=== PATIENT | female | born 1990 ===

== ENCOUNTER 2016-07-31 10:33 | Emergency (ER) | payer OTHER ==
[2016-07-31] MEDS ORDERED: ACETAMINOPHEN TAB 500 MG TAB PO STA (11:39)
--- NOTE | 2016-07-31 11:43 | ED ---
General Adult HPI - General Chief complaint: Upper Respiratory Infection Stated complaint: COUGH, FEVER, SORE THROAT, CA PATIENT Time Seen by Provider: 07/31/16 11:35 Source: patient, family, RN notes reviewed Mode of arrival: ambulatory Limitations: no limitations - History of Present Illness Initial comments: Patient is a pleasant 26-year-old female presenting to the emergency department with concerns for fever. Patient has had a cough for the past 5 days. Patient did have some green sputum this morning. Patient also noticed fever this morning. Patient has not taken any Tylenol today. No difficulty in breathing. Patient does have breast cancer and is currently on chemotherapy for this. Patient denies any discomfort or itching with the rash. Patient has been using hydrocortisone cream as recommended by her doctor. - Related Data Previous Rx's Medication Instructions Recorded Levofloxacin [Levaquin] 500 mg PO DAILY #9 tab 07/31/16 Allergies Allergy/AdvReac Type Severity Reaction Status Date / Time No Known Allergies Allergy Verified 07/31/16 11:30 Review of Systems ROS Statement: Those systems with pertinent positive or pertinent negative responses have been documented in the HPI. ROS Other: All systems not noted in ROS Statement are negative. Constitutional: Reports: fever, chills Eyes: Denies: eye pain ENT: Reports: throat pain. Denies: ear pain Respiratory: Reports: cough. Denies: dyspnea Cardiovascular: Denies: chest pain Endocrine: Reports: fatigue Gastrointestinal: Denies: abdominal pain Genitourinary: Denies: dysuria Musculoskeletal: Denies: back pain Skin: Reports: rash (Patient sent a pitcher to her doctor and was told it was from her chemotherapy) Neurological: Denies: headache Past Medical History Additional Past Medical History / Comment(s): breast cancer History of Any Multi-Drug Resistant Organisms: None Reported Additional Past Surgical History / Comment(s): wisdom teeth Past Psychological History: No Psychological Hx Reported Smoking Status: Never smoker Past Alcohol Use History: None Reported Past Drug Use History: None Reported General Exam Limitations: no limitations General appearance: alert, in no apparent distress Head exam: Present: atraumatic Eye exam: Present: normal appearance, PERRL ENT exam: Present: normal oropharynx Neck exam: Present: normal inspection. Absent: meningismus Respiratory exam: Present: rhonchi Cardiovascular Exam: Present: tachycardia GI/Abdominal exam: Present: soft. Absent: distended, tenderness Extremities exam: Present: normal inspection Neurological exam: Present: alert Psychiatric exam: Present: normal affect, normal mood Skin exam: Present: rash (Patient does have erythematous rash, mostly on the stomach, left side. Patient does have some vesicular-type appearance centrally. Nontender.) Course Vital Signs 07/31/16 07/31/16 11:30 14:01 Temperature 100.4 F H 98.8 F Pulse Rate 116 H 105 H Respiratory 16 18 Rate Blood Pressure 126/84 112/74 O2 Sat by Pulse 99 98 Oximetry EKG Findings - EKG Comments: EKG Findings:: Sinus tachycardia 106. NC 126. QRS 78. QT 350. QTC 464. Normal axis. Normal QRS. Normal ST-T. Medical Decision Making - Medical Decision Making Patient states she did just recently have neulasta. Case was discussed in detail with Dr. Gupta who is familiar with this patient. He recommends Levaquin and patient can be discharged. Patient reevaluated and updated on results and plan. Patient is comfortable with discharge. - Lab Data Result diagrams: 07/31/16 12:20 07/31/16 12:20 Lab Results 07/31/16 07/31/16 07/31/16 Range/Units 12:20 12:20 12:20 WBC 31.8 H* (3.8-10.6) k/uL RBC 3.40 L (3.80-5.40) m/uL Hgb 10.6 L (11.4-16.0) gm/dL Hct 31.1 L (34.0-46.0) % MCV 91.6 (80.0-100.0) fL MCH 31.1 (25.0-35.0) pg MCHC 33.9 (31.0-37.0) g/dL RDW 16.9 H (11.5-15.5) % Plt Count 283 (150-450) k/uL Neutrophils % (Manual) 85.0 % Band Neutrophils % 6.5 % Lymphocytes % (Manual) 4.0 % Monocytes % (Manual) 4.0 % Metamyelocytes % 0.5 % Neutrophils # (Manual) 29.1 H (1.3-7.7) k/uL Lymphocytes # (Manual) 1.3 (1.0-4.8) k/uL Monocytes # (Manual) 1.3 H (0-1.0) k/uL Nucleated RBCs 0 (0-0) /100 WBC Manual Slide Review Performed Toxic Granulation Present RBC Morphology Normal Anisocytosis Slight Sodium 143 (137-145) mmol/L Potassium 3.5 (3.5-5.1) mmol/L Chloride 102 (98-107) mmol/L Carbon Dioxide 27 (22-30) mmol/L Anion Gap 14 mmol/L BUN <2 L (7-17) mg/dL Creatinine 0.61 (0.52-1.04) mg/dL Est GFR (MDRD) Af Amer >60 (>60 ml/min/1.73 sqM) Est GFR (MDRD) Non-Af >60 (>60 ml/min/1.73 sqM) Glucose 94 (74-99) mg/dL Plasma Lactic Acid Omar 1.3 (0.7-2.0) mmol/L Calcium 9.6 (8.4-10.2) mg/dL Total Bilirubin 0.6 (0.2-1.3) mg/dL AST 52 H (14-36) U/L ALT 69 H (9-52) U/L Alkaline Phosphatase 176 H (38-126) U/L Total Protein 7.6 (6.3-8.2) g/dL Albumin 4.6 (3.5-5.0) g/dL Urine Color Urine Appearance (Clear) Urine pH (5.0-8.0) Ur Specific [place] (1.001-1.035) Urine Protein (Negative) Urine Glucose (UA) (Negative) Urine Ketones (Negative) Urine Blood (Negative) Urine Nitrate (Negative) Urine Bilirubin (Negative) Urine Urobilinogen (<2.0) mg/dL Ur Leukocyte Esterase (Negative) Influenza Type A RNA (Not Detectd) Influenza Type B (PCR) (Not Detectd) 07/31/16 07/31/16 Range/Units 12:20 12:50 WBC (3.8-10.6) k/uL RBC (3.80-5.40) m/uL Hgb (11.4-16.0) gm/dL Hct (34.0-46.0) % MCV (80.0-100.0) fL MCH (25.0-35.0) pg MCHC (31.0-37.0) g/dL RDW (11.5-15.5) % Plt Count (150-450) k/uL Neutrophils % (Manual) % Band Neutrophils % % Lymphocytes % (Manual) % Monocytes % (Manual) % Metamyelocytes % % Neutrophils # (Manual) (1.3-7.7) k/uL Lymphocytes # (Manual) (1.0-4.8) k/uL Monocytes # (Manual) (0-1.0) k/uL Nucleated RBCs (0-0) /100 WBC Manual Slide Review Toxic Granulation RBC Morphology Anisocytosis Sodium (137-145) mmol/L Potassium (3.5-5.1) mmol/L Chloride (98-107) mmol/L Carbon Dioxide (22-30) mmol/L Anion Gap mmol/L BUN (7-17) mg/dL Creatinine (0.52-1.04) mg/dL Est GFR (MDRD) Af Amer (>60 ml/min/1.73 sqM) Est GFR (MDRD) Non-Af (>60 ml/min/1.73 sqM) Glucose (74-99) mg/dL Plasma Lactic Acid Omar (0.7-2.0) mmol/L Calcium (8.4-10.2) mg/dL Total Bilirubin (0.2-1.3) mg/dL AST (14-36) U/L ALT (9-52) U/L Alkaline Phosphatase (38-126) U/L Total Protein (6.3-8.2) g/dL Albumin (3.5-5.0) g/dL Urine Color Light Yellow Urine Appearance Clear (Clear) Urine pH 5.5 (5.0-8.0) Ur Specific [place] 1.003 (1.001-1.035) Urine Protein Negative (Negative) Urine Glucose (UA) Negative (Negative) Urine Ketones Negative (Negative) Urine Blood Negative (Negative) Urine Nitrate Negative (Negative) Urine Bilirubin Negative (Negative) Urine Urobilinogen <2.0 (<2.0) mg/dL Ur Leukocyte Esterase Negative (Negative) Influenza Type A RNA Not Detected (Not Detectd) Influenza Type B (PCR) Not Detected (Not Detectd) - Radiology Data Radiology results: image reviewed (Chest x-ray shows no acute process.) Disposition Clinical Impression: Upper respiratory infection Disposition: HOME SELF-CARE Condition: Stable Instructions: Upper Respiratory Infection (ED) Additional Instructions: Please follow-up with your oncologist on Tuesday. Return for difficulty in breathing, uncontrolled fevers, weakness, worsening symptoms or other concerns. Prescriptions: Levofloxacin [Levaquin] 500 mg PO DAILY #9 tab Referrals: Clarissa Landers DO [Primary Care Provider] - 1-2 days
[2016-07-31] MEDS: SODIUM CHLORIDE 0.9% 500 ML IV SCH ×2 (12:23→14:12)
[2016-07-31 12:38] LABS: Anisocytosis Slight; CH 31.7; CHCM 34.9; HCT 31.1 % (34.0-46.0); HDW 3.09; HGB 10.6 gm/dL (11.4-16.0); MCH 31.1 pg (25.0-35.0); MCHC 33.9 g/dL (31.0-37.0); MCV 91.6 fL (80.0-100.0); Mean Platelet Volume 7.4; RDW 16.9 % (11.5-15.5); WBC (Perox) 32.47
[2016-07-31 12:40] LABS: Appearance,Urine Clear (Clear); Bilirubin,Urine Negative (Negative); Glucose,Urine (UA) Negative (Negative); Ketones,Urine Negative (Negative); Leukocyte Esterase,Urine Negative (Negative); Nitrite,Urine Negative (Negative); PH, Urine 5.5 (5.0-8.0); Protein,Urine Negative (Negative); Specific Gravity,Urine 1.003 (1.001-1.035); UA Billing (MACRO vs. MICRO) CHEM; Urobilinogen,Urine <2.0 mg/dL (<2.0)
--- NOTE | 2016-07-31 12:44 | XR ---
EXAMINATION TYPE: XR chest 2V DATE OF EXAM: 07/31/2016 12:41 PM COMPARISON: NONE INDICATION: Fever cough congestion TECHNIQUE: Frontal and lateral views of the chest are obtained. FINDINGS: The heart size is normal. The pulmonary vasculature is normal. The lungs are clear. IMPRESSION: 1. No acute pulmonary process.
[2016-07-31 12:45] LABS: WBC 31.8 k/uL (3.8-10.6)
[2016-07-31 12:48] LABS: ALT 69 U/L (9-52); AST 52 U/L (14-36); Alkaline Phosphatase 176 U/L (38-126); Anion Gap 14 mmol/L; Blood Urea Nitrogen <2 mg/dL (7-17); Calcium 9.6 mg/dL (8.4-10.2); Carbon Dioxide 27 mmol/L (22-30); Chloride 102 mmol/L (98-107); Glucose 94 mg/dL (74-99); Non-African American GFR(MDRD) >60 (>60 ml/min/1.73 sqM); Potassium 3.5 mmol/L (3.5-5.1); Sodium 143 mmol/L (137-145); Total Bilirubin 0.6 mg/dL (0.2-1.3); Total Protein 7.6 g/dL (6.3-8.2)
[2016-07-31 12:52] LABS: Add Differential Manual Differential
[2016-07-31 12:54] LABS: Band Neutrophils % 6.5 %; Manual Review Performed; Metamyelocytes % 0.5 %; Nucleated Red Blood Cells 0 /100 WBC (0-0); Total Cells Counted 200; Toxic Granulation Present
[2016-07-31 12:55] LABS: RBC Morphology Normal
[2016-07-31 14:02] VITALS: RESP 18; TEMP 98.8
[2016-07-31] MEDS ORDERED: LEVOFLOXACIN 500 MG TAB PO STA (14:55)
[2016-07-31 15:08] VITALS: BP 113/66; PULSE 104
== END 2016-07-31 15:08 | disposition home or self-care (01) ==
LOC: EC 10:33
DX: J06.9 Acute upper respiratory infection, unspecified (principal); R21 Rash and other nonspecific skin eruption; R00.0 Tachycardia, unspecified
CPT/HCPCS: 12002; 36415; 71020; 80053; 81003; 83605; 85025; 87040; 87086; 87502; 93005; 96360; 99283; 99284

== ENCOUNTER 2019-11-21 17:57 | Emergency (ER) | payer OTHER ==
[2019-11-21 18:05] VITALS: RESP 18; TEMP 98.4
[2019-11-21] MEDS ORDERED: SODIUM CHLORIDE 0.9% 500 ML 500 ML IV STA (18:17)
[2019-11-21] MEDS ORDERED: KETOROLAC 30 MG/ML 1 ML VIAL IVP STA (18:17)
--- NOTE | 2019-11-21 18:32 | ED ---
Abdominal Pain HPI - General Chief Complaint: Abdominal Pain Stated Complaint: Flank pain Time Seen by Provider: 11/21/19 18:05 Source: patient, RN notes reviewed Mode of arrival: ambulatory Limitations: no limitations - History of Present Illness Initial Comments: 29-year-old female presents emergency Department chief complaint of severe left lower quadrant pain. Patient states it has been ongoing but worsening. She got she had ovarian cyst and states that she went to her WOUND CARE PHYSICIAN in which they did a transvaginal ultrasound was negative for cysts she was treated for bacterial vaginosis and had a Pap. Patient states she follow-up with her primary care physician after that noted diagnosed with UTI states that she took an infection of this. Patient also had no abdominal ultrasound which was negative for any acute findings though she states her pain was not in any other areas that the ultrasound. Patient denies any back pain. Patient does have a history significant for breast cancer treated with chemotherapy. Patient states that she's been negative after. She's had yearly checkups. Patient denies fever, chills no dysuria no hematuria denies any chance . She states not worse with movement no changes with congestion at this time she states initially it was. She has been referred to GI but she states this one month away. She states pain was unbearable today. - Related Data Home Medications Medication Instructions Recorded Confirmed Ibuprofen [Motrin Ib] 600 mg PO ONCE PRN 11/21/19 11/21/19 Allergies Allergy/AdvReac Type Severity Reaction Status Date / Time No Known Allergies Allergy Verified 11/21/19 18:50 Review of Systems ROS Statement: Those systems with pertinent positive or pertinent negative responses have been documented in the HPI. ROS Other: All systems not noted in ROS Statement are negative. Past Medical History Additional Past Medical History / Comment(s): breast cancer History of Any Multi-Drug Resistant Organisms: None Reported Additional Past Surgical History / Comment(s): wisdom teeth Past Psychological History: No Psychological Hx Reported Smoking Status: Never smoker Past Alcohol Use History: None Reported Past Drug Use History: None Reported General Exam Limitations: no limitations General appearance: alert, in no apparent distress Head exam: Present: atraumatic, normocephalic, normal inspection Eye exam: Present: normal appearance, PERRL, EOMI. Absent: scleral icterus, conjunctival injection, periorbital swelling ENT exam: Present: normal exam, mucous membranes moist Neck exam: Present: normal inspection. Absent: tenderness, meningismus, lymphadenopathy Respiratory exam: Present: normal lung sounds bilaterally. Absent: respiratory distress, wheezes, rales, rhonchi, stridor Cardiovascular Exam: Present: regular rate, normal rhythm, normal heart sounds. Absent: systolic murmur, diastolic murmur, rubs, gallop, clicks GI/Abdominal exam: Present: soft, tenderness (Moderate left lower quadrant, left groin tenderness), normal bowel sounds. Absent: distended, guarding, rebound, rigid Back exam: Absent: CVA tenderness (R), CVA tenderness (L) Neurological exam: Present: alert, oriented X3, CN II-XII intact Skin exam: Present: warm, dry, intact, normal color. Absent: rash Course Vital Signs 11/21/19 11/21/19 18:02 18:58 Temperature 98.4 F Pulse Rate 107 H 68 Respiratory 18 18 Rate Blood Pressure 149/92 128/84 O2 Sat by Pulse 97 99 Oximetry Medical Decision Making - Medical Decision Making Laboratory unremarkable, CT shows evidence of dilated colon constipation fecal stasis. Patient is advised use arm are suppository. Patient has a GI follow-up return parameters were discussed. - Lab Data Result diagrams: 11/21/19 18:30 11/21/19 18:30 Lab Results 11/21/19 11/21/19 11/21/19 Range/Units 18:30 18:30 18:30 WBC 5.6 (3.8-10.6) k/uL RBC 5.19 (3.80-5.40) m/uL Hgb 15.7 (11.4-16.0) gm/dL Hct 48.3 H (34.0-46.0) % MCV 93.1 (80.0-100.0) fL MCH 30.2 (25.0-35.0) pg MCHC 32.4 (31.0-37.0) g/dL RDW 11.7 (11.5-15.5) % Plt Count 244 (150-450) k/uL Neutrophils % 65 % Lymphocytes % 22 % Monocytes % 7 % Eosinophils % 1 % Basophils % 1 % Neutrophils # 3.6 (1.3-7.7) k/uL Lymphocytes # 1.2 (1.0-4.8) k/uL Monocytes # 0.4 (0-1.0) k/uL Eosinophils # 0.1 (0-0.7) k/uL Basophils # 0.0 (0-0.2) k/uL Sodium (137-145) mmol/L Potassium (3.5-5.1) mmol/L Chloride (98-107) mmol/L Carbon Dioxide (22-30) mmol/L Anion Gap mmol/L BUN (7-17) mg/dL Creatinine (0.52-1.04) mg/dL Est GFR (CKD-EPI)AfAm (>60 ml/min/1.73 sqM) Est GFR (CKD-EPI)NonAf (>60 ml/min/1.73 sqM) Glucose (74-99) mg/dL Calcium (8.4-10.2) mg/dL Total Bilirubin (0.2-1.3) mg/dL AST (14-36) U/L ALT (4-34) U/L Alkaline Phosphatase (38-126) U/L Total Protein (6.3-8.2) g/dL Albumin (3.5-5.0) g/dL Lipase (23-300) U/L Urine Color Colorless Urine Appearance Clear (Clear) Urine pH 5.5 (5.0-8.0) Ur Specific [place] 1.001 (1.001-1.035) Urine Protein Negative (Negative) Urine Glucose (UA) Negative (Negative) Urine Ketones Negative (Negative) Urine Blood Negative (Negative) Urine Nitrite Negative (Negative) Urine Bilirubin Negative (Negative) Urine Urobilinogen <2.0 (<2.0) mg/dL Ur Leukocyte Esterase Negative (Negative) Urine HCG, Qual Not Detected (Not Detectd) 11/21/19 Range/Units 18:30 WBC (3.8-10.6) k/uL RBC (3.80-5.40) m/uL Hgb (11.4-16.0) gm/dL Hct (34.0-46.0) % MCV (80.0-100.0) fL MCH (25.0-35.0) pg MCHC (31.0-37.0) g/dL RDW (11.5-15.5) % Plt Count (150-450) k/uL Neutrophils % % Lymphocytes % % Monocytes % % Eosinophils % % Basophils % % Neutrophils # (1.3-7.7) k/uL Lymphocytes # (1.0-4.8) k/uL Monocytes # (0-1.0) k/uL Eosinophils # (0-0.7) k/uL Basophils # (0-0.2) k/uL Sodium 139 (137-145) mmol/L Potassium 4.0 (3.5-5.1) mmol/L Chloride 105 (98-107) mmol/L Carbon Dioxide 26 (22-30) mmol/L Anion Gap 8 mmol/L BUN 8 (7-17) mg/dL Creatinine 0.71 (0.52-1.04) mg/dL Est GFR (CKD-EPI)AfAm >90 (>60 ml/min/1.73 sqM) Est GFR (CKD-EPI)NonAf >90 (>60 ml/min/1.73 sqM) Glucose 123 H (74-99) mg/dL Calcium 10.2 (8.4-10.2) mg/dL Total Bilirubin 0.4 (0.2-1.3) mg/dL AST 23 (14-36) U/L ALT 13 (4-34) U/L Alkaline Phosphatase 45 (38-126) U/L Total Protein 7.9 (6.3-8.2) g/dL Albumin 4.9 (3.5-5.0) g/dL Lipase 143 (23-300) U/L Urine Color Urine Appearance (Clear) Urine pH (5.0-8.0) Ur Specific [place] (1.001-1.035) Urine Protein (Negative) Urine Glucose (UA) (Negative) Urine Ketones (Negative) Urine Blood (Negative) Urine Nitrite (Negative) Urine Bilirubin (Negative) Urine Urobilinogen (<2.0) mg/dL Ur Leukocyte Esterase (Negative) Urine HCG, Qual (Not Detectd) Disposition Clinical Impression: Abdominal pain, Constipation Disposition: HOME SELF-CARE Condition: Stable Instructions (If sedation given, give patient instructions): Abdominal Pain (ED) Additional Instructions: Please return to the Emergency Department if symptoms worsen or any other concerns. Is patient prescribed a controlled substance at d/c from ED?: No Referrals: Clarissa Landers DO [Primary Care Provider] - 1-2 days
[2019-11-21 18:45] LABS: Basophils % (A) 1 %; Eosinophils # (A) 0.1 k/uL (0-0.7); Eosinophils % (A) 1 %; HCT 48.3 % (34.0-46.0); HGB 15.7 gm/dL (11.4-16.0); Lymphocytes # (A) 1.2 k/uL (1.0-4.8); Lymphocytes % (A) 22 %; MCH 30.2 pg (25.0-35.0); MCHC 32.4 g/dL (31.0-37.0); MCV 93.1 fL (80.0-100.0); Mean Platelet Volume 7.7; Monocytes # (A) 0.4 k/uL (0-1.0); Monocytes % (A) 7 %; Neutrophils # (A) 3.6 k/uL (1.3-7.7); Neutrophils % (A) 65 %; Platelet Count 244 k/uL (150-450); RBC 5.19 m/uL (3.80-5.40); RDW 11.7 % (11.5-15.5); WBC 5.6 k/uL (3.8-10.6)
[2019-11-21 18:46] LABS: Appearance,Urine Clear (Clear); Bilirubin,Urine Negative (Negative); Blood,Urine Negative (Negative); Color,Urine Colorless; Glucose,Urine (UA) Negative (Negative); Ketones,Urine Negative (Negative); Leukocyte Esterase,Urine Negative (Negative); Nitrite,Urine Negative (Negative); PH, Urine 5.5 (5.0-8.0); Protein,Urine Negative (Negative); Specific Gravity,Urine 1.001 (1.001-1.035); Urobilinogen,Urine <2.0 mg/dL (<2.0)
[2019-11-21 18:54] LABS: ALT 13 U/L (4-34); AST 23 U/L (14-36); African American GFR (CKD) >90 (>60 ml/min/1.73 sqM); Albumin 4.9 g/dL (3.5-5.0); Alkaline Phosphatase 45 U/L (38-126); Anion Gap 8 mmol/L; Blood Urea Nitrogen 8 mg/dL (7-17); Calcium 10.2 mg/dL (8.4-10.2); Carbon Dioxide 26 mmol/L (22-30); Chloride 105 mmol/L (98-107); Glucose 123 mg/dL (74-99); Non-African American GFR(CKD) >90 (>60 ml/min/1.73 sqM); Sodium 139 mmol/L (137-145); Total Bilirubin 0.4 mg/dL (0.2-1.3); Total Protein 7.9 g/dL (6.3-8.2)
--- NOTE | 2019-11-21 19:28 | CT ---
EXAMINATION TYPE: CT abdomen pelvis w con DATE OF EXAM: 11/21/2019 HISTORY: Lower abdominal pain x1 month, hx of breast CA CT DLP: 582.1mGycm Automated Exposure Control for Dose Reduction was Utilized. CONTRAST: CT scan of the abdomen and pelvis is performed without oral but with IV Contrast, patient injected wi th 100 mL of Isovue 300. COMPARISON: PET CT April 24, 2016. FINDINGS: LUNG BASES: No significant abnormality is appreciated. LIVER/GB: Somewhat contracted gallbladder. PANCREAS: No significant abnormality is seen. SPLEEN: No significant abnormality is seen. ADRENALS: No significant abnormality is seen. KIDNEYS: No significant abnormality is seen. BOWEL: Suboptimal evaluation without enteric contrast. Debris-filled stomach with air-fluid level sug gests product of recent meal ingestion. No suspicious small or large bowel dilatation. Mild to modera te prominence of fecal material in the cecum and right colon. Similar finding in the mid to distal si gmoid colon and rectum. UTERUS/ADNEXA: Anteverted uterus. Ovaries normal in size. Right ovary has 2.1 cm round hyperdense les ion axial image 59 likely reflecting corpus luteal cyst from recent ovulation. Few scattered left-edmund ed pelvic phleboliths. LYMPH NODES: No greater than 1cm abdominal or pelvic lymph nodes are appreciated. OSSEOUS STRUCTURES: There are 6 lumbar type vertebra. OTHER: No significant additional abnormality is seen. IMPRESSION: Overall nonobstructive bowel gas pattern. Mild to moderate proximal and distal colonic fe gilda stasis noted. Otherwise no significant acute finding is seen to account for patient's clinical sy mptoms of lower abdominal pain.
[2019-11-21 22:43] VITALS: BP 123/95; PULSE 78
== END 2019-11-21 20:41 | disposition home or self-care (01) ==
LOC: EC 17:57
DX: K59.00 Constipation, unspecified (principal); K59.39 Other megacolon; Z85.3 Personal history of malignant neoplasm of breast; Z92.21 Personal history of antineoplastic chemotherapy
CPT/HCPCS: 36415; 80053; 83690; 85025; 81003; 81025; 74177; 96374; 96361; 99284; J1885; Q9967

== ENCOUNTER 2020-01-17 08:12 | Day surgery (SDC) | payer OTHER ==
[2020-01-15 12:22] VITALS: BMI 21.1
[~2020-01-17 08:12] MED LIST: LACTATED RINGERS 1,000 ML IV SCH
--- NOTE | 2020-01-17 08:54 | P.GSHP ---
History of Present Illness H&P Date: 01/17/20 Chief Complaint: Abdominal pain, change in bowel habits, irritable bowel syn drome This a 20-year-old female who presents today for colonoscopy. She's had complaints of abdominal pain, change in bowel habits with diarrhea and constipation. Patient's history of bowel syndrome. Past Medical History Past Medical History: Cancer, Osteoarthritis (OA) Additional Past Medical History / Comment(s): abdominal pain, CT showed enlarged colon, breast cancer History of Any Multi-Drug Resistant Organisms: None Reported Past Surgical History: Breast Surgery Additional Past Surgical History / Comment(s): wisdom teeth, [place] mastectomy and breast reconstruction Past Anesthesia/Blood Transfusion Reactions: No Reported Reaction Smoking Status: Never smoker - Past Family History Mother Family Medical History: Cancer Father Family Medical History: Cancer Medications and Allergies Home Medications Medication Instructions Recorded Confirmed Type Biotin(Dose Unknown) 2 tab PO HS 01/15/20 01/17/20 History Allergies Allergy/AdvReac Type Severity Reaction Status Date / Time No Known Allergies Allergy Verified 01/17/20 08:35 Surgical - Exam Vital Signs Temp Pulse Resp BP Pulse Ox 98.7 F 103 H 16 127/70 99 01/17/20 08:34 01/17/20 08:34 01/17/20 08:34 01/17/20 08:34 01/17/20 08:34 - General well developed, well nourished, no distress - Eyes PERRL - ENT normal pinna - Neck no masses - Respiratory normal expansion - Cardiovascular Rhythm: regular - Abdomen Abdomen: soft, non tender Assessment and Plan Assessment: Abdominal pain. Change about. We'll perform colonoscopy.
[2020-01-17] MEDS ORDERED: LIDOCAINE 1% (10MG/ML) FOR IV START INTRADERMA ONE (09:02)
[2020-01-17] MEDS ORDERED: PROPOFOL 10 MG/ML 20 ML VIAL IV ONE (09:41)
[2020-01-17] MEDS ORDERED: LIDOCAINE 1% INJ 10MG/ML (20 ML MDV) ONE (09:41)
--- NOTE | 2020-01-17 10:07 | P.OP ---
Date of Procedure: 01/17/20 Preoperative Diagnosis: Irritable bowel syndrome syndrome Abdominal pain Postoperative Diagnosis: Normal colonoscopy Procedure(s) Performed: Colonoscopy Anesthesia: MAC Surgeon: Lobo Perez Pathology: none sent Condition: stable Disposition: PACU Description of Procedure: PROCEDURE: The patient was placed on the endoscopy table in the lateral position. Digital rectal examination was performed which revealed no abnormalities. . Flexible colonoscope was then placed in the patient's anus and passed throughout the entire colon. The ileocecal valve was visualized. The cecum, ascending, transverse, descending and sigmoid colon were normal. The rectum was normal as well. There were no masses, polyps or diverticula noted in the entire colon. SUMMARY OF FINDINGS: Normal colonoscopy.
[2020-01-18 08:45] VITALS: BP 107/73; PULSE 87; RESP 16; TEMP 98.7
== END 2020-01-17 10:50 | disposition home or self-care (01) ==
LOC: ORWHC2ENDO 08:12
PROVIDERS: ATTEND Surgery
DX: K58.2 Mixed irritable bowel syndrome (principal); M19.90 Unspecified osteoarthritis, unspecified site; Z85.3 Personal history of malignant neoplasm of breast; Z90.13 Acquired absence of bilateral breasts and nipples; Z98.818 Other dental procedure status; Z80.9 Family history of malignant neoplasm, unspecified; Z79.899 Other long term (current) drug therapy
CPT/HCPCS: 81025; 45378; J2001; J2704

== ENCOUNTER → 2021-07-13 | Outpatient (CLI) | payer OTHER ==
--- NOTE | 2021-07-13 14:19 | US ---
EXAMINATION TYPE: Transabdominal DATE OF EXAM: 07/13/2021 2:06 PM COMPARISON: NONE CLINICAL HISTORY: O46.91 Antepartum Hemorrhage first trimester. Bleeding. EXAM PERFORMED: Transabdominal (TA) EXAM MEASUREMENTS: GESTATIONAL AGE / DATING Physician Established: Not yet established Dates by LMP: (6 weeks/6 days) EDC: 03/02/2022 Dates by First Scan: No previous this is first scan Dates by Current Scan for: ( 7 weeks/5 days) EDC: 02/24/2022 MATERNAL ANATOMY Uterus: 9.7 x 7.8 x 5.7cm Right Ovary: 3.1 x 1.7 x 1.2 cm Left Ovary: 3.4 x 2.1 x 1.8 cm Post CDS / Adnexa: no Presence of free fluid: no Presence of corpus luteal cyst: left ovary = 2.0 x 1.7 x 1.6 cm Presence of subchorionic bleed: no GESTATION / SURVEY CRL: 1.3 cm (7 weeks/5 days) MSD: seen, not measured Yolk Sac (normal less than 6mm): 2.4 mm Heart Rate: 167 bpm Rhythm: Normal IUP: Viable IUP Date of LMP: 05/26/2021, G1 Beta HcG (if available): Not available at this time Single live IUP as gestational sac, yolk sac, and pole are present. No free fluid in pelvic cul -de-sac. Both ovaries identified. Within the left ovary there is 2.0 cm cystic lesion with surrounding vascula rity suspected corpus luteal cyst. No extraovarian adnexal masses noted. IMPRESSION: Single live intrauterine gestation is confirmed. Mean crown-rump length 1.3 cm correspond ing to 7 week 5 day old fetus.
== END | disposition home or self-care (01) ==
LOC: RADUSWWP 13:40
PROVIDERS: ATTEND Obstetrics & Gynecology
DX: O20.9 Hemorrhage in early pregnancy, unspecified (principal); Z3A.01 Less than 8 weeks gestation of pregnancy
CPT/HCPCS: 76801